=== PATIENT | female | born 1960 | race Caucasian/White ===

== ENCOUNTER 2018-02-22 11:08 | Outpatient (CLI) | payer BC ==
--- NOTE | 2018-02-22 15:46 | CT ---
NONCONTRAST CT ABDOMEN AND PELVIS: Date: 02-22-18 History: Flank pain for four days. Urinary frequency. Microscopic hematuria. FINDINGS: No renal or ureteral calculi are seen bilaterally. There is no evidence of hydronephrosis. There are two hypodense lesions seen within the mid portion of the right kidney, the largest measurin g approximately 1.3 cm which do demonstrate fluid attenuation on nonenhanced CT imaging and probably represent renal cysts. The urinary bladder is partially distended and has a grossly normal nonenhanced CT appearance. There are multiple scattered hypodense lesions seen in each lobe of the liver, the largest in the rig ht hepatic lobe measuring approximately 1.3 cm. The largest lesion does demonstrate fluid attenuation and findings may be attributable to multiple hepatic cysts. However, given multiplicity of these hyp odense lesions, metastatic disease cannot be excluded based on this exam. There is bibasilar atelectasis. The spleen, pancreas, bilateral adrenal glands, and left kidney demonstrate a grossly normal nonenhan gita CT appearance. Dense vascular calcifications are seen in the abdominal aorta and iliac arteries. There is colonic diverticulosis. No free fluid or fluid collection is seen in the abdomen or pelvis. Metallic density is seen in the superficial soft tissues at the level of the umbilicus, probably rela meg to external jewelry. IMPRESSION: 1. No renal or ureteral calculi are seen bilaterally. 2. Hypodense right renal lesions, one of which has a closely adjacent punctate calcification. Attenua tion coefficient suggests that these low density lesions on noncontrast imaging are related to renal cysts. 3. Multiple hypodense hepatic cystic lesions probably secondary to multiple hepatic cysts, but given multiplicity, metastatic disease cannot be excluded on this nonenhanced CT scan exam. 4. Colonic diverticulosis. 5. Dense calcifications in the abdominal aorta and iliac arteries. POS: GABE
== END 2018-02-22 11:09 | disposition home or self-care (01) ==
LOC: CT 11:08
PROVIDERS: ATTEND Nurse Practitioner Family
DX: R35.0 Frequency of micturition (principal); M54.9 Dorsalgia, unspecified; R31.9 Hematuria, unspecified; K57.30 Diverticulosis of large intestine without perforation or abscess without bleeding; I70.0 Atherosclerosis of aorta; K76.9 Liver disease, unspecified; N28.9 Disorder of kidney and ureter, unspecified
CPT/HCPCS: 74176; 87086

== ENCOUNTER 2018-02-23 12:19 | Outpatient (CLI) | payer BC | END 2018-02-23 12:20 | disposition home or self-care (01) | LOC: BICRAD 12:19 | PROVIDERS: ATTEND Nurse Practitioner Family | DX: N28.1 Cyst of kidney, acquired (principal) | CPT/HCPCS: 71046 ==

== ENCOUNTER 2018-09-14 15:08 | Outpatient (CLI) | payer BC | END 2018-09-14 15:09 | disposition home or self-care (01) | LOC: BICMAMMO 15:08 | PROVIDERS: ATTEND Obstetrics & Gynecology | DX: Z12.31 Encounter for screening mammogram for malignant neoplasm of breast (principal) | CPT/HCPCS: 77063; 77067 ==

== ENCOUNTER 2019-12-04 13:49 | Outpatient (CLI) | payer BC ==
--- NOTE | 2019-12-04 14:42 | RAD ---
PA AND LATERAL CHEST: HISTORY: Dyspnea. FINDINGS: Heart size is within normal limits. There are atherosclerotic changes of the aorta. The lungs show some changes suggesting COPD. Bilateral shoulder surgery is noted, also postoperative changes of the cervical spine. IMPRESSION: No active intrathoracic disease. Essentially stable chest as compared to an 08/24/2011 study. POS: GABE
== END 2019-12-04 13:50 | disposition home or self-care (01) ==
LOC: RAD 13:49
PROVIDERS: ATTEND Internal Medicine Pulmonary Disease
DX: R06.00 Dyspnea, unspecified (principal)
CPT/HCPCS: 71046

== ENCOUNTER 2020-12-10 15:24 | Outpatient (CLI) | payer BC ==
--- NOTE | 2020-12-10 16:10 | RAD ---
EXAM: Chest PA and lateral: HISTORY: Dyspnea COMPARISON: 12/04/2019 FINDINGS: Heart: Normal cardiac silhouette Aorta: Atherosclerosis Pulmonary vessels: Normal Costophrenic angles: Costophrenic angles are clear. Lungs: No consolidation or masses. Lungs are hyperinflated with chronic changes. Pneumothorax: No pneumothorax Osseous structures: No osseous abnormalities IMPRESSION: 1. Atherosclerosis 2. Hyperinflation. COPD and chronic changes.
== END 2020-12-10 15:25 | disposition home or self-care (01) ==
LOC: BICRAD 15:24
PROVIDERS: ATTEND Internal Medicine Pulmonary Disease
DX: R06.00 Dyspnea, unspecified (principal); J44.9 Chronic obstructive pulmonary disease, unspecified; I70.0 Atherosclerosis of aorta
CPT/HCPCS: 71046

== ENCOUNTER 2021-08-03 16:17 | Outpatient (CLI) | payer BC | END 2021-08-03 16:18 | disposition home or self-care (01) | LOC: BICMAMMO 16:17 | PROVIDERS: ATTEND Obstetrics & Gynecology | DX: Z12.31 Encounter for screening mammogram for malignant neoplasm of breast (principal); Z91.89 Other specified personal risk factors, not elsewhere classified | CPT/HCPCS: 77063; 77067 ==